=== PATIENT | female | born 1970 | race Caucasian/White ===

== ENCOUNTER 2020-09-11 03:15 | Outpatient (CLI) | payer SELFPAY | END 2020-09-11 03:16 | disposition EMS.NT | LOC: EMS 03:15 | DX: R45.89 Other symptoms and signs involving emotional state (principal) ==

== ENCOUNTER 2020-10-29 12:34 | Outpatient (CLI) | payer BC | END 2020-10-29 12:35 | disposition critical access hospital (66) | LOC: EMS 12:34 | DX: R25.1 Tremor, unspecified (principal) | CPT/HCPCS: A0425; A0427 ==

== ENCOUNTER 2020-10-29 12:55 | Emergency (ER) | payer BC ==
[2020-10-29] MEDS ORDERED: ONDANSETRON 4 MG/2 ML VIAL IVP STA (13:14)
[2020-10-29] MEDS ORDERED: THIAMINE INJ 100 MG in SODIUM CHLORIDE 0.9% 50 ML IV STA (13:14)
[2020-10-29] MEDS ORDERED: LORazepam 2 MG/ML VIAL IVP STA ×2 (13:14→14:23)
[2020-10-29] MEDS ORDERED: SODIUM CHLORIDE 0.9% 1,000 ML IV STA (13:14)
--- NOTE | 2020-10-29 13:26 | ED Physician Documentation ---
History of Present Illness - Stated complaint Stated Complaint: POST SZ - Chief complaint Chief Complaint: General - History obtained from History obtained from: Patient - Additonal information Additional information: She has been trying to cut back on alcohol and get into detox. She comes in by ambulance for "a small seizure." 50-year-old woman with history of depression, spells abuse and alcoholism has been drinking for the last month and a half. Few weeks ago she took pills and drank in a suicide attempt, but has not been suicidal in the last few weeks since that. She had a seizure this morning as she is trying to ration her alcohol. Review of Systems Ten Systems: 10 systems reviewed and negative Constitutional: reports: Reviewed and negative Ears: reports: Reviewed and negative Nose: reports: Reviewed and negative Throat: reports: Reviewed and negative Cardiac: reports: Reviewed and negative PD PAST MEDICAL HISTORY - Past Medical History Past Medical History: Yes Psych: Depression - Past Surgical History Past Surgical History: Yes General: Cholecystectomy, Gastric surgery - Present Medications Home Medications: Ambulatory Orders Medication Instructions Recorded Confirmed Gabapentin [Neurontin] 600 mg PO TID 10/29/20 10/29/20 LORazepam [Ativan] 1 mg PO TID PRN #12 tablet 10/29/20 Ondansetron Odt [Zofran] 4 mg TL Q6H PRN #10 tablet 10/29/20 Thiamine [Vitamin B-1] 100 mg PO DAILY #30 tablet 10/29/20 Vortioxetine Hydrobromide 0 mg DAILY 10/29/20 10/29/20 [Trintellix] Zolpidem Tartrate [Ambien] 1 tab QPM 10/29/20 10/29/20 diazePAM [Valium] 5 mg PO DAILY 10/29/20 10/29/20 - Allergies Allergies/Adverse Reactions: Allergies Allergy/AdvReac Type Severity Reaction Status Date / Time diphenhydramine AdvReac Unknown Verified 10/29/20 13:08 [From Benadryl] - Social History Does the pt smoke?: No Smoking Status: Never smoker Does the pt drink ETOH?: Yes Does the pt have substance abuse?: No PD ED PE NORMAL - Vitals Vital signs reviewed: Yes - General General: Alert and oriented X 3, Other (Retching) - HEENT HEENT: PERRL, EOMI - Neck Neck: Supple, no meningeal sign, No bony TTP - Cardiac Cardiac: RRR, No murmur - Respiratory Respiratory: No respiratory distress, Clear bilaterally - Abdomen Abdomen: Normal bowel sounds, Soft, Non tender - Back Back: No CVA TTP, No spinal TTP - Derm Derm: Normal color, Warm and dry - Extremities Extremities: No edema, No calf tenderness / cord - Neuro Neuro: Alert and oriented X 3, Normal speech Results - Vitals Vitals: Vital Signs - 24 hr 10/29/20 10/29/20 12:56 15:00 Temperature 36.4 C L Heart Rate 79 68 Respiratory 16 18 Rate Blood Pressure 156/101 H 148/93 H O2 Saturation 96 96 Oxygen O2 Source Room air - Labs Labs: Laboratory Tests 10/29/20 10/29/20 10/29/20 13:28 13:28 14:37 WBC 3.2 L RBC 4.27 Hgb 11.3 L Hct 36.4 L MCV 85.2 MCH 26.5 L MCHC 31.0 L RDW 22.3 H Plt Count 226 MPV 9.2 Neut # (Auto) 1.7 Lymph # (Auto) 1.0 L [place] # (Auto) 0.4 Eos # (Auto) 0.0 Baso # (Auto) 0.1 Absolute Nucleated RBC 0.00 Nucleated RBC % 0.0 Manual Slide Review Indicated Platelet Estimate NORMAL (130-450,000) Platelet Morphology NORMAL APPEARANCE RBC Morph Micro Appear 1+ MACROCYTOSIS Sodium 137 Potassium 3.8 Chloride 100 L Carbon Dioxide 25 Anion Gap 12.0 BUN 14 Creatinine 1.0 Estimated GFR (MDRD) 58 L Glucose 92 Calcium 8.5 Magnesium 2.1 Total Bilirubin 0.7 AST 46 H ALT 29 Alkaline Phosphatase 95 Total Protein 7.4 Albumin 3.8 Globulin 3.6 Albumin/Globulin Ratio 1.1 Lipase 50 Nasal Adenovirus (PCR) NOT DETECTED Nasal B. parapertussis DNA (PCR) NOT DETECTED Nasal Coronavir 229E PCR NOT DETECTED Nasal Coronavir HKU1 PCR NOT DETECTED Nasal Coronavir NL63 PCR NOT DETECTED Nasal Coronavir OC43 PCR NOT DETECTED Nasal Enterovir/Rhinovir PCR NOT DETECTED Nasal Influenza B PCR NOT DETECTED Nasal Influenza A PCR NOT DETECTED Nasal Parainfluen 1 PCR NOT DETECTED Nasal Parainfluen 2 PCR NOT DETECTED Nasal Parainfluen 3 PCR NOT DETECTED Nasal Parainfluen 4 PCR NOT DETECTED Nasal RSV (PCR) NOT DETECTED Nasal B.pertussis DNA PCR NOT DETECTED Nasal C.pneumoniae (PCR) NOT DETECTED Maurizio Human Metapneumo PCR NOT DETECTED Nasal M.pneumoniae (PCR) NOT DETECTED Nasal SARS-CoV-2 (PCR) NOT DETECTED Ethyl Alcohol < 5.0 PD MEDICAL DECISION MAKING - ED course ED course: She is feeling much better after some IV Ativan, thiamine, and Zofran. Her plan is to go from here to [facility] detox. They would like a Covid test. 50-year-old woman presents with moderate alcohol withdrawal. Covid test negative. Feeling better after meds. She will go to detox from here. Departure - Departure Disposition: Home, Self Care Clinical Impression: Alcohol abuse with withdrawal Condition: Good Record reviewed to determine appropriate education?: Yes Instructions: ED Seizure Alcohol Withdrawal Prescriptions: LORazepam [Ativan] 1 mg PO TID PRN #12 tablet PRN Reason: Anxiety Thiamine [Vitamin B-1] 100 mg PO DAILY #30 tablet Ondansetron Odt [Zofran] 4 mg TL Q6H PRN #10 tablet PRN Reason: Nausea / Vomiting Comments: Go directly to [facility] detox. I am writing prescriptions that should help with the withdrawal symptoms. Return for new or worsening symptoms.
[2020-10-29 13:35] LABS: BASOPHILS # (AUTO) 0.1 10^3/uL (0.0-0.1); BASOPHILS % (AUTO) 2.2 %; EOSINOPHILS % (AUTO) 0.6 %; HCT - HEMATOCRIT 36.4 % (37.0-47.0); HGB - HEMOGLOBIN 11.3 g/dL (12.0-16.0); MEAN CORPUSCULAR HEMOGLOBIN 26.5 pg (27.0-31.0); MEAN CORPUSCULAR VOLUME 85.2 fL (81.0-99.0); MEAN PLATELET VOLUME 9.2 fL (7.9-10.8); MONOCYTES # (AUTO) 0.4 10^3/uL (0.0-1.0); MONOCYTES % (AUTO) 13.9 %; NEUTROPHILS # (AUTO) 1.7 10^3/uL (1.5-6.6); NEUTROPHILS % (AUTO) 52.3 %; PLT - PLATELET COUNT 226 10^3/uL (130-450); RED BLOOD COUNT 4.27 10^6/uL (4.20-5.40); RED CELL DISTRIBUTION WIDTH 22.3 % (12.0-15.0); WHITE BLOOD COUNT 3.2 x10^3/uL (4.8-10.8)
[2020-10-29 13:44] LABS: SLIDE REVIEW? Indicated
[2020-10-29 13:49] LABS: ALBUMIN 3.8 g/dL (3.2-5.5); ALBUMIN/GLOBULIN RATIO 1.1 (1.0-2.2); ALKALINE PHOSPHATASE 95 IU/L (42-121); ALT ALANINE AMINOTRANSFERASE 29 IU/L (10-60); AST ASPARTATE AMINOTRANSFERASE 46 IU/L (10-42); BILIRUBIN,TOTAL 0.7 mg/dL (0.2-1.0); BUN - BLOOD UREA NITROGEN 14 mg/dL (6-20); CALCIUM 8.5 mg/dL (8.5-10.3); CARBON DIOXIDE - CO2 25 mmol/L (21-32); CHLORIDE 100 mmol/L (101-111); ETOH - ETHANOL < 5.0 mg/dL; GFR - MDRD 58 (>89); GLUCOSE 92 mg/dL (70-100); LIPASE 50 U/L (22-51); MAGNESIUM 2.1 mg/dL (1.7-2.8); POTASSIUM 3.8 mmol/L (3.5-5.0); SODIUM 137 mmol/L (135-145); TOTAL PROTEIN 7.4 g/dL (6.7-8.2)
[2020-10-29 13:59] LABS: PLATELET ESTIMATE, MANUAL NORMAL (130-450,000) (NORMAL); PLATELET MORPHOLOGY NORMAL APPEARANCE (NORMAL)
[2020-10-29 15:35] LABS: B. PARAPERTUSSIS- RESP PCR PAN NOT DETECTED; B. PERTUSSIS- RESP PCR PANEL NOT DETECTED; C. PNEUMONIAE- RESP PCR PANEL NOT DETECTED; CORONAVIRUS 229E-RESP PCR NOT DETECTED; CORONAVIRUS HKU1-RESP PCR NOT DETECTED; CORONAVIRUS NL63-RESP PCR NOT DETECTED; CORONAVIRUS OC43-RESP PCR NOT DETECTED; HUMAN METAPNEUMOVIRUS NOT DETECTED; INFLUENZA A- RESP PCR PANEL NOT DETECTED; INFLUENZA B - RESP PCR PANEL NOT DETECTED; M. PNEUMONIAE- RESP PCR PANEL NOT DETECTED; PARAINFLUENZA VIRUS 1 NOT DETECTED; PARAINFLUENZA VIRUS 2 NOT DETECTED; PARAINFLUENZA VIRUS 3 NOT DETECTED; PARAINFLUENZA VIRUS 4 NOT DETECTED; RHINOVIRUS/ENTEROVIRUS NOT DETECTED; RSV- RESP PCR PANEL NOT DETECTED; SARS-CoV-2 -RESP PCR PANEL NOT DETECTED
[2020-10-29 15:38] LABS: MUDS CUTOFF CONCENTRATIONS CUTOFF CONC BELOW:
[2020-10-29 15:52] LABS: AMPHETAMINE SCREEN,URINE NEGATIVE (NEGATIVE); BARBITURATE SCREEN,UR NEGATIVE (NEGATIVE); BENZODIAZEPINES SCREEN, URINE POSITIVE (NEGATIVE); COCAINE SCREEN URINE NEGATIVE (NEGATIVE); METHADONE SCREEN, URINE NEGATIVE (NEGATIVE); METHAMPHETAMINES SCREEN, URINE NEGATIVE (NEGATIVE); OPIATE SCREEN, URINE NEGATIVE (NEGATIVE); OXYCODONE SCREEN, URINE NEGATIVE (NEGATIVE); PROPOXYPHENE SCREEN, URINE NEGATIVE (NEGATIVE); THC CANNABINOID SCREEN, URINE NEGATIVE (NEGATIVE); TRICYCLIC ANTIDEPRESSANT,URINE NEGATIVE (NEGATIVE)
[2020-10-29] MEDS ORDERED: LORazepam 1 MG TABLET PO STA (15:59)
[2020-10-29 16:12] VITALS: BP 147/93
== END 2020-10-29 16:40 | disposition home or self-care (01) ==
LOC: EDUNIT# → ED 12:55
DX: F10.139 Alcohol abuse with withdrawal, unspecified (principal); Z20.822 Contact with and (suspected) exposure to COVID-19; Z98.84 Bariatric surgery status
CPT/HCPCS: 0202U; 36415; 80053; 80306; 80320; 83690; 83735; 85025; 96361; 96365; 96375; 96376; 99284; 99285; J2060; J3411; J7040; J8499

== ENCOUNTER 2020-11-12 22:23 | Outpatient (CLI) | payer BC | END 2020-11-12 22:24 | disposition short-term general hospital (02) | LOC: EMS 22:23 | DX: R06.02 Shortness of breath (principal); R05 Cough | CPT/HCPCS: A0425; A0427 ==

== ENCOUNTER 2020-11-21 23:01 | Outpatient (CLI) | payer BC | END 2020-11-21 23:02 | disposition EMS.NT | LOC: EMS 23:01 | DX: U07.1 COVID-19 (principal) ==

== ENCOUNTER 2020-11-23 11:23 | Outpatient (CLI) | payer BC | END 2020-11-23 11:24 | disposition EMS.NT | LOC: EMS 11:23 | DX: U07.1 COVID-19 (principal); F10.10 Alcohol abuse, uncomplicated ==

== ENCOUNTER 2020-11-24 10:12 | Outpatient (CLI) | payer BC | END 2020-11-24 10:13 | disposition EMS.NT | LOC: EMS 10:12 | DX: Z03.89 Encounter for observation for other suspected diseases and conditions ruled out (principal) ==

== ENCOUNTER 2020-11-26 09:20 | Outpatient (CLI) | payer BC | END 2020-11-26 09:21 | disposition critical access hospital (66) | LOC: EMS 09:20 | DX: R55 Syncope and collapse (principal); R51.9 Headache, unspecified; F10.10 Alcohol abuse, uncomplicated; U07.1 COVID-19 | CPT/HCPCS: A0425; A0427 ==

== ENCOUNTER 2020-11-26 09:50 | Emergency (ER) | payer BC ==
[2020-11-26 10:08] VITALS: BP 106/77
[2020-11-26 11:22] LABS: BASOPHILS % (AUTO) 0.4 %; EOSINOPHILS % (AUTO) 1.1 %; HGB - HEMOGLOBIN 9.4 g/dL (12.0-16.0); LYMPHOCYTES # (AUTO) 1.1 10^3/uL (1.5-3.5); LYMPHOCYTES % (AUTO) 37.9 %; MEAN CORPUSCULAR HEMOGLOBIN 28.1 pg (27.0-31.0); MEAN CORPUSCULAR HGB CONC 30.3 g/dL (32.0-36.0); MEAN CORPUSCULAR VOLUME 92.5 fL (81.0-99.0); MEAN PLATELET VOLUME 9.4 fL (7.9-10.8); MONOCYTES # (AUTO) 0.2 10^3/uL (0.0-1.0); MONOCYTES % (AUTO) 8.7 %; NEUTROPHILS # (AUTO) 1.4 10^3/uL (1.5-6.6); NEUTROPHILS % (AUTO) 51.5 %; PLT - PLATELET COUNT 128 10^3/uL (130-450); RED BLOOD COUNT 3.35 10^6/uL (4.20-5.40); RED CELL DISTRIBUTION WIDTH 20.3 % (12.0-15.0); WHITE BLOOD COUNT 2.8 x10^3/uL (4.8-10.8)
[2020-11-26 11:28] LABS: RBC MORPHOLOGY (MULTIPLE) 4+ ANISOCYTOSIS (NORMAL); SLIDE REVIEW? Indicated
[2020-11-26 11:33] LABS: ALBUMIN 2.9 g/dL (3.2-5.5); ALBUMIN/GLOBULIN RATIO 0.9 (1.0-2.2); BILIRUBIN,TOTAL 0.7 mg/dL (0.2-1.0); CALCIUM 7.8 mg/dL (8.5-10.3); CREATININE 0.6 mg/dL (0.4-1.0); POTASSIUM 3.5 mmol/L (3.5-5.0); TOTAL PROTEIN 6.1 g/dL (6.7-8.2)
[2020-11-26] MEDS ORDERED: SODIUM CHLORIDE 0.9% 1,000 ML IV STA (12:09)
--- NOTE | 2020-11-26 12:25 | ED Physician Documentation ---
PD HPI SYNCOPE - Stated complaint Stated Complaint: Syncopal - Chief complaint Chief Complaint: Cardiac - History obtained from History obtained from: Patient - History of Present Illness Witnessed: Witnessed Timing - onset: Today Duration: Minutes Preceding symptoms: Vision changes, Light headed, Generalized weakness Contributing factors: Decreased PO intake Injury occurred: Fell, Head injury. No: Neck injury Similar symptoms before: Has not had sx before Recently seen: Other (dx COVID one week ago.) - Additional information Additional information: 50-year-old female who has been vaccinated with Fusebill in May of this year has developed Covid she was diagnosed 1 week ago and she has had a decreased oral intake nothing tastes good and nothing smells well and she had multiple syncopal episodes this morning. Review of Systems Constitutional: denies: Fever Eyes: denies: Decreased vision Ears: denies: Ear pain Nose: denies: Congestion Throat: denies: Sore throat Cardiac: reports: Chest pain / pressure. denies: Palpitations Respiratory: reports: Dyspnea, Cough GI: denies: Abdominal Pain, Nausea, Vomiting : denies: Dysuria Skin: denies: Rash Musculoskeletal: denies: Neck pain, Back pain, Extremity pain Neurologic: reports: Generalized weakness, Syncope, Headache, Head injury. denies: Focal weakness, Numbness, Altered mental status PD PAST MEDICAL HISTORY - Past Medical History Psych: Depression, Anxiety - Past Surgical History Past Surgical History: Yes General: Cholecystectomy, Gastric surgery - Present Medications Home Medications: Ambulatory Orders Medication Instructions Recorded Confirmed Gabapentin [Neurontin] 600 mg PO TID 10/29/20 10/29/20 LORazepam [Ativan] 1 mg PO TID PRN #12 tablet 10/29/20 Ondansetron Odt [Zofran] 4 mg TL Q6H PRN #10 tablet 10/29/20 Thiamine [Vitamin B-1] 100 mg PO DAILY #30 tablet 10/29/20 Vortioxetine Hydrobromide 0 mg DAILY 10/29/20 10/29/20 [Trintellix] Zolpidem Tartrate [Ambien] 1 tab QPM 10/29/20 10/29/20 diazePAM [Valium] 5 mg PO DAILY 10/29/20 10/29/20 - Allergies Allergies/Adverse Reactions: Allergies Allergy/AdvReac Type Severity Reaction Status Date / Time diphenhydramine AdvReac Unknown Verified 10/29/20 13:08 [From Benadryl] - Social History Does the pt smoke?: No Smoking Status: Never smoker Does the pt drink ETOH?: Yes Does the pt have substance abuse?: No PD ED PE NORMAL - Vitals Vital signs reviewed: Yes (Normal) - General General: No acute distress, Well developed/nourished, Other (Came into the room to find the patient laying on the floor sleeping. She indicated that she tried to get up to go to the bathroom and collapsed. Her call button was not in her hand.) - HEENT HEENT: Atraumatic, PERRL, EOMI - Neck Neck: Supple, no meningeal sign, No bony TTP - Cardiac Cardiac: RRR, No murmur - Respiratory Respiratory: No respiratory distress, Clear bilaterally - Abdomen Abdomen: Normal bowel sounds, Soft, Non tender, Non distended, No organomegaly - Back Back: No CVA TTP, No spinal TTP - Derm Derm: Normal color, Warm and dry, No rash - Extremities Extremities: No deformity, No edema - Neuro Neuro: Alert and oriented X 3, landscape artist 2-12 intact, No motor deficit, No sensory deficit, Normal speech Eye Opening: Spontaneous Motor: Obeys Commands Verbal: Oriented GCS Score: 15 - Psych Psych: Normal mood, Normal affect Results - Vitals Vitals: Vital Signs - 24 hr 11/26/20 10:00 Temperature 36.7 C Heart Rate 66 Respiratory 14 Rate Blood Pressure 106/77 O2 Saturation 98 Oxygen O2 Source Room air - EKG (time done) 1004 Rate: Rate (enter#) (67) Rhythm: NSR Intervals: Prolonged MA, Prolonged QT (borderline) Compare to prior EKG: Old EKG unavailable Computer interpretation: Agree with computer - Labs Labs: Laboratory Tests 11/26/20 11/26/20 11/26/20 11:13 11:13 11:13 WBC 2.8 L RBC 3.35 L Hgb 9.4 L Hct 31.0 L MCV 92.5 MCH 28.1 MCHC 30.3 L RDW 20.3 H Plt Count 128 L MPV 9.4 Neut # (Auto) 1.4 L Lymph # (Auto) 1.1 L [place] # (Auto) 0.2 Eos # (Auto) 0.0 Baso # (Auto) 0.0 Absolute Nucleated RBC 0.00 Nucleated RBC % 0.0 Manual Slide Review Indicated RBC Morph Micro Appear 4+ ANISOCYTOSIS Sodium 143 Potassium 3.5 Chloride 108 Carbon Dioxide 25 Anion Gap 10.0 BUN 5 L Creatinine 0.6 Estimated GFR (MDRD) 105 Glucose 93 Calcium 7.8 L Total Bilirubin 0.7 AST 113 H ALT 43 Alkaline Phosphatase 112 Troponin I High Sens 5.2 Total Protein 6.1 L Albumin 2.9 L Globulin 3.2 Albumin/Globulin Ratio 0.9 L Lipase 32 PD MEDICAL DECISION MAKING - ED course Complexity details: reviewed old records, reviewed results, re-evaluated patient, considered differential, d/w patient ED course: 50-year-old female diagnosed 1 week ago with Covid presents to the emergency department today with syncope. She is found to be dehydrated on interrogation the inferior vena cava and she is administered saline. She feels improved. She is 1 week into her illness and she is saturating at 100% her lungs sound clear. She admits to a decreased oral intake. She is administered dexamethasone 10 mg orally in addition to 2 L of normal saline. Departure - Departure Disposition: 01 Home, Self Care Clinical Impression: Dehydration determined by examination, Syncope and collapse Condition: Stable Instructions: ED Dehydration Follow-Up: Owen Barreto MD [Primary Care Provider] -
[2020-11-26] MEDS ORDERED: DEXAMETHASONE 10 MG/ML VIAL IVP STA (13:15)
== END 2020-11-26 14:22 | disposition home or self-care (01) ==
LOC: EDUNIT# → ED 09:50
DX: E86.0 Dehydration (principal); R55 Syncope and collapse; U07.1 COVID-19
CPT/HCPCS: 36415; 80053; 83690; 84484; 85025; 96361; 96374; 99284

== ENCOUNTER 2021-11-20 06:58 | Emergency (ER) | payer BC ==
[2021-11-20] MEDS ORDERED: KETOROLAC 15 MG/ML VIAL IVP STA (07:20)
--- NOTE | 2021-11-20 07:24 | ED Physician Documentation ---
PD HPI ABD PAIN - Stated complaint Stated Complaint: N/V/D - History obtained from History obtained from: Patient, Family - Additional information Additional information: This is a 51-year-old woman who presents by private vehicle accompanied by her son-in-law. Per the son-in-law she has a history of alcoholism and narcotic abuse. More recently has developed a dysphagia of unclear etiology and now has a PEG tube. She states that her reason for admission is pain and vomiting and diarrhea. It becomes clear after further interview that she is having pain because she is withdrawing from her medications. The son shows me pictures of where she apparently had adulterated her medications in an attempt to smoke them. Review of Systems Unable to obtain: Confused, Uncooperative PD PAST MEDICAL HISTORY - Past Medical History Psych: Depression, Anxiety - Past Surgical History Past Surgical History: Yes General: Cholecystectomy, Gastric surgery - Present Medications Home Medications: Ambulatory Orders Medication Instructions Recorded Confirmed Gabapentin [Neurontin] 600 mg PO TID 10/29/20 10/29/20 LORazepam [Ativan] 1 mg PO TID PRN #12 tablet 10/29/20 Ondansetron Odt [Zofran] 4 mg TL Q6H PRN #10 tablet 10/29/20 Thiamine [Vitamin B-1] 100 mg PO DAILY #30 tablet 10/29/20 Vortioxetine Hydrobromide 0 mg DAILY 10/29/20 10/29/20 [Trintellix] Zolpidem Tartrate [Ambien] 1 tab QPM 10/29/20 10/29/20 diazePAM [Valium] 5 mg PO DAILY 10/29/20 10/29/20 - Allergies Allergies/Adverse Reactions: Allergies Allergy/AdvReac Type Severity Reaction Status Date / Time diphenhydramine AdvReac Unknown Verified 10/29/20 13:08 [From Benadryl] - Social History Does the pt smoke?: No Smoking Status: Never smoker Does the pt drink ETOH?: Yes Does the pt have substance abuse?: No PD ED PE NORMAL - Vitals Vital signs reviewed: Yes - General General: Other (She is alert and oriented to person and place, she is very slow to answer regarding time and events. Frequent flatus.) - HEENT HEENT: EOMI, Other (Dilated pupils) - Neck Neck: Supple, no meningeal sign, No bony TTP - Cardiac Cardiac: RRR, No murmur - Respiratory Respiratory: No respiratory distress - Abdomen Abdomen: Normal bowel sounds, Soft, Other (Healing mini laparotomy scar superiorly with PEG tube left upper quadrant. No sign of infection. Nontender.) - Back Back: No CVA TTP, No spinal TTP - Derm Derm: Normal color, Warm and dry - Neuro Eye Opening: Spontaneous Motor: Obeys Commands Verbal: Confused (slight) GCS Score: 14 Results - Vitals Vitals: Vital Signs - 24 hr 11/20/21 11/20/21 11/20/21 07:10 09:24 11:00 Temperature 37.2 C 36.4 C L Heart Rate 89 83 83 Respiratory 25 H 22 24 Rate Blood Pressure 155/104 H 152/95 H 152/100 H O2 Saturation 100 93 97 11/20/21 11/20/21 11/20/21 13:00 15:00 17:00 Temperature 36.7 C Heart Rate 76 87 89 Respiratory 15 20 19 Rate Blood Pressure 161/88 H 144/100 H 134/94 H O2 Saturation 96 93 95 Oxygen O2 Source Room air - EKG (time done) 1642 Rate: Rate (enter#) (92) Rhythm: NSR [place]: Normal Intervals: Normal MA QRS: Normal Ischemia: Normal ST segments - Labs Labs: Laboratory Tests 11/20/21 11/20/21 11/20/21 07:16 07:31 07:31 WBC 6.9 RBC 3.71 L Hgb 11.7 L Hct 37.2 MCV 100.3 H MCH 31.5 H MCHC 31.5 L RDW 14.3 Plt Count 377 MPV 11.0 H Neut # (Auto) 5.4 Lymph # (Auto) 1.1 L [place] # (Auto) 0.5 Eos # (Auto) 0.0 Baso # (Auto) 0.0 Absolute Nucleated RBC 0.00 Nucleated RBC % 0.0 Sodium 140 Potassium 3.7 Chloride 109 Carbon Dioxide 23 Anion Gap 8.0 BUN 20 Creatinine 0.6 Estimated GFR (MDRD) 105 Glucose 85 POC Whole Bld Glucose 70 Calcium 8.4 L Total Bilirubin 0.6 AST 20 ALT 25 Alkaline Phosphatase 81 Total Protein 6.2 L Albumin 2.9 L Globulin 3.3 Albumin/Globulin Ratio 0.9 L Lipase 34 TSH Urine Color Urine Clarity Urine pH Ur Specific [place] Urine Protein Urine Glucose (UA) Urine Ketones Urine Occult Blood Urine Nitrite Urine Bilirubin Urine Urobilinogen Ur Leukocyte Esterase Ur Microscopic Review Urine Culture Comments Urine HCG, Qual Salicylates < 6.0 Urine Opiates Screen Ur Oxycodone Screen Urine Methadone Screen Ur Propoxyphene Screen Acetaminophen < 10 L Ur Barbiturates Screen Ur Tricyclics Screen Ur Phencyclidine Scrn Ur Amphetamine Screen U Methamphetamines Scrn U Benzodiazepines Scrn Urine Cocaine Screen U Cannabinoids Screen Ethyl Alcohol < 5.0 SARS-CoV-2 (PCR) 11/20/21 11/20/21 11/20/21 07:31 08:05 08:10 WBC RBC Hgb Hct MCV MCH MCHC RDW Plt Count MPV Neut # (Auto) Lymph # (Auto) [place] # (Auto) Eos # (Auto) Baso # (Auto) Absolute Nucleated RBC Nucleated RBC % Sodium Potassium Chloride Carbon Dioxide Anion Gap BUN Creatinine Estimated GFR (MDRD) Glucose POC Whole Bld Glucose Calcium Total Bilirubin AST ALT Alkaline Phosphatase Total Protein Albumin Globulin Albumin/Globulin Ratio Lipase TSH 0.51 Urine Color YELLOW Urine Clarity CLEAR Urine pH 6.0 Ur Specific [place] 1.020 Urine Protein NEGATIVE Urine Glucose (UA) NEGATIVE Urine Ketones NEGATIVE Urine Occult Blood NEGATIVE Urine Nitrite NEGATIVE Urine Bilirubin NEGATIVE Urine Urobilinogen 0.2 (NORMAL) Ur Leukocyte Esterase NEGATIVE Ur Microscopic Review NOT INDICATED Urine Culture Comments NOT INDICATED Urine HCG, Qual NEGATIVE Salicylates Urine Opiates Screen NEGATIVE Ur Oxycodone Screen NEGATIVE Urine Methadone Screen NEGATIVE Ur Propoxyphene Screen NEGATIVE Acetaminophen Ur Barbiturates Screen NEGATIVE Ur Tricyclics Screen NEGATIVE Ur Phencyclidine Scrn NEGATIVE Ur Amphetamine Screen NEGATIVE U Methamphetamines Scrn NEGATIVE U Benzodiazepines Scrn POSITIVE H Urine Cocaine Screen NEGATIVE U Cannabinoids Screen NEGATIVE Ethyl Alcohol SARS-CoV-2 (PCR) NOT DETECTED 11/20/21 08:31 WBC RBC Hgb Hct MCV MCH MCHC RDW Plt Count MPV Neut # (Auto) Lymph # (Auto) [place] # (Auto) Eos # (Auto) Baso # (Auto) Absolute Nucleated RBC Nucleated RBC % Sodium Potassium Chloride Carbon Dioxide Anion Gap BUN Creatinine Estimated GFR (MDRD) Glucose POC Whole Bld Glucose Calcium Total Bilirubin AST ALT Alkaline Phosphatase Total Protein Albumin Globulin Albumin/Globulin Ratio Lipase TSH Urine Color Urine Clarity Urine pH Ur Specific [place] Urine Protein Urine Glucose (UA) Urine Ketones Urine Occult Blood Urine Nitrite Urine Bilirubin Urine Urobilinogen Ur Leukocyte Esterase Ur Microscopic Review Urine Culture Comments Urine HCG, Qual Salicylates Urine Opiates Screen Ur Oxycodone Screen Urine Methadone Screen Ur Propoxyphene Screen Acetaminophen Ur Barbiturates Screen Ur Tricyclics Screen Ur Phencyclidine Scrn Ur Amphetamine Screen U Methamphetamines Scrn U Benzodiazepines Scrn Urine Cocaine Screen U Cannabinoids Screen Ethyl Alcohol SARS-CoV-2 (PCR) NOT DETECTED PD MEDICAL DECISION MAKING - ED course ED course: 51yo female brought in with family for narcotic abuse/withdrawl. Eating here. Initially unwilling to do detox but I Discussed with Her she really does require it and I would not be prescribing meds to go home with such as narcotics/sedatives given her known abuse and she acquiesced to detox. Social work saw her and is looking for a bed. She was initially medicated with Toradol and droperidol with good effect for several hours, subsequently in the mid afternoon she was having worse withdrawal symptoms and medicated with buprenorphine and Ativan. She was declined by [place] because of her PEG tube even though she is not using it. The search for a bed continues at signout. Departure - Departure Clinical Impression: Narcotic abuse
[2021-11-20 07:36] LABS: BASOPHILS % (AUTO) 0.1 %; EOSINOPHILS % (AUTO) 0.1 %; HCT - HEMATOCRIT 37.2 % (37.0-47.0); HGB - HEMOGLOBIN 11.7 g/dL (12.0-16.0); LYMPHOCYTES # (AUTO) 1.1 10^3/uL (1.5-3.5); LYMPHOCYTES % (AUTO) 15.3 %; MEAN CORPUSCULAR HEMOGLOBIN 31.5 pg (27.0-31.0); MEAN CORPUSCULAR HGB CONC 31.5 g/dL (32.0-36.0); MEAN CORPUSCULAR VOLUME 100.3 fL (81.0-99.0); MONOCYTES # (AUTO) 0.5 10^3/uL (0.0-1.0); MONOCYTES % (AUTO) 6.5 %; NEUTROPHILS # (AUTO) 5.4 10^3/uL (1.5-6.6); NEUTROPHILS % (AUTO) 77.6 %; PLT - PLATELET COUNT 377 10^3/uL (130-450); RED BLOOD COUNT 3.71 10^6/uL (4.20-5.40); RED CELL DISTRIBUTION WIDTH 14.3 % (12.0-15.0); WHITE BLOOD COUNT 6.9 x10^3/uL (4.8-10.8)
[2021-11-20] MEDS ORDERED: SODIUM CHLORIDE 0.9% 1,000 ML IV STA (07:46)
[2021-11-20 07:53] LABS: ACETAMINOPHEN < 10 ug/mL (10-30); ALBUMIN 2.9 g/dL (3.2-5.5); ALBUMIN/GLOBULIN RATIO 0.9 (1.0-2.2); ALKALINE PHOSPHATASE 81 IU/L (42-121); ALT ALANINE AMINOTRANSFERASE 25 IU/L (10-60); AST ASPARTATE AMINOTRANSFERASE 20 IU/L (10-42); BILIRUBIN,TOTAL 0.6 mg/dL (0.2-1.0); BUN - BLOOD UREA NITROGEN 20 mg/dL (6-20); CALCIUM 8.4 mg/dL (8.5-10.3); CARBON DIOXIDE - CO2 23 mmol/L (21-32); CHLORIDE 109 mmol/L (101-111); CREATININE 0.6 mg/dL (0.4-1.0); ETOH - ETHANOL < 5.0 mg/dL; GFR - MDRD 105 (>89); GLUCOSE 85 mg/dL (70-100); LIPASE 34 U/L (22-51); POTASSIUM 3.7 mmol/L (3.5-5.0); SALICYLATE < 6.0 mg/dL; SODIUM 140 mmol/L (135-145); TOTAL PROTEIN 6.2 g/dL (6.7-8.2)
[2021-11-20 08:33] LABS: MUDS CUTOFF CONCENTRATIONS CUTOFF CONC BELOW:
[2021-11-20 08:41] LABS: BILIRUBIN,URINE NEGATIVE (NEGATIVE); GLUCOSE, URINE (UA) NEGATIVE (NEGATIVE); KETONES,URINE (UA) NEGATIVE (NEGATIVE); LEUKOCYTE ESTERASE, URINE NEGATIVE (NEGATIVE); NITRITE,URINE NEGATIVE (NEGATIVE); OCCULT BLOOD,URINE NEGATIVE (NEGATIVE); PROTEIN,URINE NEGATIVE (NEGATIVE); UROBILINOGEN,URINE 0.2 (NORMAL) E.U./dL (NORMAL)
[2021-11-20 08:43] LABS: CLARITY,URINE CLEAR (CLEAR); HCG UR QUAL NEGATIVE
[2021-11-20 08:52] LABS: AMPHETAMINE SCREEN,URINE NEGATIVE (NEGATIVE); BARBITURATE SCREEN,UR NEGATIVE (NEGATIVE); BENZODIAZEPINES SCREEN, URINE POSITIVE (NEGATIVE); COCAINE SCREEN URINE NEGATIVE (NEGATIVE); METHADONE SCREEN, URINE NEGATIVE (NEGATIVE); METHAMPHETAMINES SCREEN, URINE NEGATIVE (NEGATIVE); OPIATE SCREEN, URINE NEGATIVE (NEGATIVE); OXYCODONE SCREEN, URINE NEGATIVE (NEGATIVE); PROPOXYPHENE SCREEN, URINE NEGATIVE (NEGATIVE); THC CANNABINOID SCREEN, URINE NEGATIVE (NEGATIVE); TRICYCLIC ANTIDEPRESSANT,URINE NEGATIVE (NEGATIVE)
[2021-11-20] MEDS ORDERED: DROPERIDOL 5 MG/2 ML VIAL IVP STA (09:16)
[2021-11-20] MEDS ORDERED: LORazepam 2 MG/ML VIAL IVP STA (15:20)
[2021-11-20] MEDS ORDERED: BUPRENORPHINE 0.3 MG/ML VIAL IVP ONE ×3 (15:20→20:42)
[2021-11-20] MEDS ORDERED: NICOTINE 14 MG PATCH TOP STA (15:51)
[2021-11-20] MEDS ORDERED: ZOLPIDEM 5 MG TABLET PO PRN ×2 (17:52→17:58)
[2021-11-20] MEDS: PREGABALIN 100 MG CAPSULE PO SCH ×2 (18:17→22:15)
[2021-11-20] MEDS: LORazepam 1 MG TABLET PO PRN (20:11)
[2021-11-20] MEDS ORDERED: ACETAMINOPHEN 325 MG TABLET PO STA (21:21)
[2021-11-21] MEDS ORDERED: BUPRENORPHINE 0.3 MG/ML VIAL IVP ONE (00:22)
[2021-11-21] MEDS: LORazepam 1 MG TABLET PO PRN ×3 (02:10→15:13)
[2021-11-21] MEDS: PREGABALIN 100 MG CAPSULE PO SCH ×2 (06:08→13:52)
[2021-11-21] MEDS ORDERED: MULTIVITAMIN TABLET PO SCH (09:00)
[2021-11-21] MEDS ORDERED: THIAMINE 100 MG TABLET PO SCH (09:00)
[2021-11-21] MEDS ORDERED: ACETAMINOPHEN 325 MG TABLET PO STA (12:22)
[2021-11-21] MEDS ORDERED: ONDANSETRON ODT 4 MG TABLET TL STA (13:46)
--- NOTE | 2021-11-21 17:32 | ED Physician Documentation ---
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 She was unable to get pain management but she was able to get a PEG tube placed for nourishment and hydration. She continued to have pain and eventually went to the streets for fentanyl. She has been having issue with fentanyl and she discontinued its use 2 nights ago presented to the emergency department yesterday with withdrawal. She states that she has taken some Xanax previously for withdrawal symptoms of the fentanyl but this was a brief period of time about 3 to 4 days. She does not believe she will have any problem with benzodiazepine withdrawal. She was seen in the emergency department yesterday by Dr. Porter and inpatient detoxification and treatment were indicated. This was supported by the patient's primary care doctor as well. The patient spent the night in the emergency department here and again today manager social services has worked all day is unable to find a facility that will take the patient secondary to her PEG tube. The patient herself has contacted her insurance company and is looking to [facility] in [place] for treatment and she is awaiting a call back. The patient would like to go home today and feels that she has improved in her symptoms of fentanyl withdrawal. Review of Systems Constitutional: denies: Fever Respiratory: denies: Cough GI: reports: Abdominal Pain (improved), Vomiting (improved), Diarrhea (improved) Skin: denies: Rash Musculoskeletal: reports: Neck pain Neurologic: denies: Generalized weakness, Focal weakness, Numbness PD PAST MEDICAL HISTORY - Past Medical History Psych: Depression, Anxiety - Past Surgical History Past Surgical History: Yes General: Cholecystectomy, Gastric surgery - Present Medications Home Medications: Ambulatory Orders Medication Instructions Recorded Confirmed Gabapentin [Neurontin] 600 mg PO TID 10/29/20 10/29/20 LORazepam [Ativan] 1 mg PO TID PRN #12 tablet 10/29/20 Ondansetron Odt [Zofran] 4 mg TL Q6H PRN #10 tablet 10/29/20 Thiamine [Vitamin B-1] 100 mg PO DAILY #30 tablet 10/29/20 Vortioxetine Hydrobromide 0 mg DAILY 10/29/20 10/29/20 [Trintellix] Zolpidem Tartrate [Ambien] 1 tab QPM 10/29/20 10/29/20 diazePAM [Valium] 5 mg PO DAILY 10/29/20 10/29/20 - Allergies Allergies/Adverse Reactions: Allergies Allergy/AdvReac Type Severity Reaction Status Date / Time diphenhydramine AdvReac Unknown Verified 10/29/20 13:08 [From Benadryl] - Social History Does the pt smoke?: No Smoking Status: Never smoker Does the pt drink ETOH?: Yes Does the pt have substance abuse?: No Substance Use and Type: Prescription Pills PD ED PE NORMAL - Vitals Vital signs reviewed: Yes (hyertensive ) - General General: Alert and oriented X 3, No acute distress, Well developed/nourished, Other (The patient longer has any delay in execution of motor commands or speech latency. 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 Eye Opening: Spontaneous Motor: Obeys Commands Verbal: Oriented GCS Score: 15 - Psych Psych: Normal mood, Normal affect Results - Vitals Vitals: Vital Signs - 24 hr 11/20/21 11/20/21 11/20/21 19:00 20:47 21:30 Temperature Heart Rate 90 93 Respiratory 20 23 18 Rate Blood Pressure 141/100 H 133/96 H O2 Saturation 93 90 L 97 If not protocol 3.5 2 : Oxygen Flow, liters/minute 11/20/21 11/21/21 11/21/21 23:00 01:00 03:00 Temperature 36.6 C 36.5 C Heart Rate 88 81 84 Respiratory 21 18 19 Rate Blood Pressure 141/93 H 149/98 H 149/96 H O2 Saturation 98 97 96 If not protocol : Oxygen Flow, liters/minute 11/21/21 11/21/21 11/21/21 05:00 06:11 08:09 Temperature 36.6 C Heart Rate 78 90 94 Respiratory 19 19 16 Rate Blood Pressure 149/95 H 164/94 H 152/115 H O2 Saturation 96 97 98 If not protocol : Oxygen Flow, liters/minute 11/21/21 11/21/21 10:00 13:20 Temperature Heart Rate 93 107 H Respiratory 19 19 Rate Blood Pressure 136/92 H 147/101 H O2 Saturation 98 98 If not protocol : Oxygen Flow, liters/minute Oxygen O2 Source Room air - Labs Labs: Laboratory Tests 11/20/21 11/20/21 11/20/21 07:16 07:31 07:31 WBC 6.9 RBC 3.71 L Hgb 11.7 L Hct 37.2 MCV 100.3 H MCH 31.5 H MCHC 31.5 L RDW 14.3 Plt Count 377 MPV 11.0 H Neut # (Auto) 5.4 Lymph # (Auto) 1.1 L [place]ole # (Auto) 0.5 Eos # (Auto) 0.0 Baso # (Auto) 0.0 Absolute Nucleated RBC 0.00 Nucleated RBC % 0.0 Sodium 140 Potassium 3.7 Chloride 109 Carbon Dioxide 23 Anion Gap 8.0 BUN 20 Creatinine 0.6 Estimated GFR (MDRD) 105 Glucose 85 POC Whole Bld Glucose 70 Calcium 8.4 L Total Bilirubin 0.6 AST 20 ALT 25 Alkaline Phosphatase 81 Total Protein 6.2 L Albumin 2.9 L Globulin 3.3 Albumin/Globulin Ratio 0.9 L Lipase 34 TSH Urine Color Urine Clarity Urine pH Ur Specific [place] Urine Protein Urine Glucose (UA) Urine Ketones Urine Occult Blood Urine Nitrite Urine Bilirubin Urine Urobilinogen Ur Leukocyte Esterase Ur Microscopic Review Urine Culture Comments Urine HCG, Qual Salicylates < 6.0 Urine Opiates Screen Ur Oxycodone Screen Urine Methadone Screen Ur Propoxyphene Screen Acetaminophen < 10 L Ur Barbiturates Screen Ur Tricyclics Screen Ur Phencyclidine Scrn Ur Amphetamine Screen U Methamphetamines Scrn U Benzodiazepines Scrn Urine Cocaine Screen U Cannabinoids Screen Ethyl Alcohol < 5.0 SARS-CoV-2 (PCR) 11/20/21 11/20/21 11/20/21 07:31 08:05 08:10 WBC RBC Hgb Hct MCV MCH MCHC RDW Plt Count MPV Neut # (Auto) Lymph # (Auto) [place] # (Auto) Eos # (Auto) Baso # (Auto) Absolute Nucleated RBC Nucleated RBC % Sodium Potassium Chloride Carbon Dioxide Anion Gap BUN Creatinine Estimated GFR (MDRD) Glucose POC Whole Bld Glucose Calcium Total Bilirubin AST ALT Alkaline Phosphatase Total Protein Albumin Globulin Albumin/Globulin Ratio Lipase TSH 0.51 Urine Color YELLOW Urine Clarity CLEAR Urine pH 6.0 Ur Specific [place] 1.020 Urine Protein NEGATIVE Urine Glucose (UA) NEGATIVE Urine Ketones NEGATIVE Urine Occult Blood NEGATIVE Urine Nitrite NEGATIVE Urine Bilirubin NEGATIVE Urine Urobilinogen 0.2 (NORMAL) Ur Leukocyte Esterase NEGATIVE Ur Microscopic Review NOT INDICATED Urine Culture Comments NOT INDICATED Urine HCG, Qual NEGATIVE Salicylates Urine Opiates Screen NEGATIVE Ur Oxycodone Screen NEGATIVE Urine Methadone Screen NEGATIVE Ur Propoxyphene Screen NEGATIVE Acetaminophen Ur Barbiturates Screen NEGATIVE Ur Tricyclics Screen NEGATIVE Ur Phencyclidine Scrn NEGATIVE Ur Amphetamine Screen NEGATIVE U Methamphetamines Scrn NEGATIVE U Benzodiazepines Scrn POSITIVE H Urine Cocaine Screen NEGATIVE U Cannabinoids Screen NEGATIVE Ethyl Alcohol SARS-CoV-2 (PCR) NOT DETECTED 11/20/21 08:31 WBC RBC Hgb Hct MCV MCH MCHC RDW Plt Count MPV Neut # (Auto) Lymph # (Auto) [place] # (Auto) Eos # (Auto) Baso # (Auto) Absolute Nucleated RBC Nucleated RBC % Sodium Potassium Chloride Carbon Dioxide Anion Gap BUN Creatinine Estimated GFR (MDRD) Glucose POC Whole Bld Glucose Calcium Total Bilirubin AST ALT Alkaline Phosphatase Total Protein Albumin Globulin Albumin/Globulin Ratio Lipase TSH Urine Color Urine Clarity Urine pH Ur Specific [place] Urine Protein Urine Glucose (UA) Urine Ketones Urine Occult Blood Urine Nitrite Urine Bilirubin Urine Urobilinogen Ur Leukocyte Esterase Ur Microscopic Review Urine Culture Comments Urine HCG, Qual Salicylates Urine Opiates Screen Ur Oxycodone Screen Urine Methadone Screen Ur Propoxyphene Screen Acetaminophen Ur Barbiturates Screen Ur Tricyclics Screen Ur Phencyclidine Scrn Ur Amphetamine Screen U Methamphetamines Scrn U Benzodiazepines Scrn Urine Cocaine Screen U Cannabinoids Screen Ethyl Alcohol SARS-CoV-2 (PCR) NOT DETECTED PD MEDICAL DECISION MAKING - ED course Complexity details: considered differential, d/w patient, d/w family ED course: 51-year-old female going through fentanyl withdrawal unable to find a facility who will take her on for detoxification. She has a private plan for detoxification and she has the support of her family and son-in-law will be with her for the next several days. Departure - Departure Disposition: 01 Home, Self Care Clinical Impression: Narcotic abuse, Narcotic withdrawal Condition: Stable Instructions: ED Withdrawal Narcotic Follow-Up: Owen Barreto MD [Physician No Access] - Comments: Ne, today it looks like you are have some improvement in your symptoms of fentanyl withdrawal. Stay hydrated and continue to use your feeds through your PEG tube as previously. Follow-up with your primary care doctor and with your insurance company regarding potential treatment.
[2021-11-21 18:18] VITALS: BP 125/77
== END 2021-11-21 18:19 | disposition home or self-care (01) ==
LOC: ED 06:58
DX: F19.20 Other psychoactive substance dependence, uncomplicated (principal); Z20.822 Contact with and (suspected) exposure to COVID-19
CPT/HCPCS: 36415; 80053; 80306; 80307; 80320; 80329; 81003; 81025; 83690; 84443; 85025; 87635; 93005; 99281; 99283; A9270; J0592; J2060; J8499; Q0162; 81001; 87086